=== PATIENT | female | born 2000 | race Caucasian/White ===

== ENCOUNTER 2019-11-29 14:43 | Emergency (ER) | payer OTHER ==
--- NOTE | 2019-11-29 14:51 | UC ---
General HPI - HPI Summary HPI Summary: 19 yo female co hives starting approx 11am today. Took benadryl x 2 otc apprx 13:30 Not sure of inciting exposure Not sob No fever /chills. No GI upset No issues, currently on menstrual period + known hx shellfish allergy, but has not had seafood of any kind recently Has not taken any medication in the last two days (most recent was ibuprofen a couple days ago) - History of Current Complaint Stated Complaint: HIVES Time Seen by Provider: 11/29/19 14:49 Hx Obtained From: Patient - Allergy/Home Medications Allergies/Adverse Reactions: Allergies Allergy/AdvReac Type Severity Reaction Status Date / Time Cephalosporins Allergy Hives Verified 11/29/19 14:57 Penicillins Allergy Hives Verified 11/29/19 14:57 Home Medications: Home Medications Famotidine TAB* [Pepcid 20 MG TAB*] 20 mg PO DAILY #20 tab 11/29/19 [Rx] Fluticasone NASAL SPRAY 50MCG* [Flonase NASAL SPRAY 50MCG*] 2 spray BOTH NARES DAILY #1 btl 11/29/19 [Rx] diphenhydrAMINE HCl [Benadryl Allergy] 25 mg PO Q6HR 11/29/19 [History Confirmed 11/29/19] predniSONE 10 mg TAB [Deltasone 10 MG TAB*] 10 mg PO DAILY #20 tab 11/29/19 [Rx] PMH/Surg Hx/FS Hx/Imm Hx Previously Healthy: Yes - Family History Known Family History: Positive: None Review of Systems All Other Systems Reviewed And Are Negative: Yes Constitutional: Positive: Negative Skin: Positive: Rash Eyes: Positive: Negative ENT: Positive: Sinus Congestion, Other - ear congestion Respiratory: Positive: Negative Cardiovascular: Positive: Negative Gastrointestinal: Positive: Negative Genitourinary: Positive: Negative Motor: Positive: Negative Neurovascular: Positive: Negative Musculoskeletal: Positive: Negative Neurological/Mental Status: Positive: Negative Psychological: Positive: Negative Is Patient Immunocompromised?: No Physical Exam Triage Information Reviewed: Yes Appearance: Well-Appearing - sitting up itchy but nad, Well-Nourished Vital Signs Reviewed: Yes Eye Exam: Normal - watery ENT: Positive: TM dull - Both TM's dull, rtx'd, Other - mild post pharynx redness, uvula midline slightly edematous, no airway obst no stridor Neck exam: Normal Neck: Positive: Supple, Nontender, No Lymphadenopathy Respiratory Exam: Normal Respiratory: Positive: Chest non-tender, Lungs clear, Normal breath sounds, No respiratory distress, No accessory muscle use Cardiovascular Exam: Normal Cardiovascular: Positive: RRR, No Murmur, Pulses Normal, Brisk Capillary Refill Abdominal Exam: Normal Abdomen Description: Positive: Nontender Musculoskeletal Exam: Normal Musculoskeletal: Positive: Strength Intact Neurological Exam: Normal - nonfocal Psychological Exam: Normal - nad Skin Exam: Other - nondiaphoretic + urticaria torso, arms, neck. R ear tragus red and swollen Course/Dx - Course Course Of Treatment: 16:00 - still itchy but less so. Ear better. No new symptoms. RST negative see avs reviewed coa / tx plan questions as posed answered to the best of my ability - Diagnoses Provider Diagnosis: Urticaria Discharge ED - Sign-Out/Discharge Documenting (check all that apply): Patient Departure All imaging exams completed and their final reports reviewed: No Studies - Discharge Plan Condition: Stable Disposition: HOME Prescriptions: Famotidine TAB* [Pepcid 20 MG TAB*] 20 mg PO DAILY #20 tab Fluticasone NASAL SPRAY 50MCG* [Flonase NASAL SPRAY 50MCG*] 2 spray BOTH NARES DAILY #1 btl predniSONE 10 mg TAB [Deltasone 10 MG TAB*] 10 mg PO DAILY #20 tab Patient Education Materials: Diphenhydramine (By mouth), Urticaria (ED) Forms: *Work Release Referrals: [facility],[place] [Primary Care Provider] - Additional Instructions: Avoid scented soap, perfumes, scented deodorants until you are feeling back to normal. Hydrate. Avoid hot showers until you are feeling better. Use unscented white soap, and hypoallergenic laundry soap, and double rinse clothes. Rapid strep test negative. Please seek medical attention for worse or new problems. Consider HEPA Filter for your room. - Billing Disposition and Condition Condition: STABLE Disposition: Home
[2019-11-29 14:57] VITALS: BP 101/68
[2019-11-29] MEDS ORDERED: methylPREDNISolone 125 MG* 2 ML VIAL IM ONE (15:11)
[2019-11-29] MEDS ORDERED: Famotidine TAB* 20 MG PO ONE (15:11)
== END 2019-11-29 16:26 | disposition home or self-care (01) ==
LOC: UCEAST 14:43
DX: L50.9 Urticaria, unspecified (principal); J34.89 Other specified disorders of nose and nasal sinuses; Z88.0 Allergy status to penicillin; Z88.1 Allergy status to other antibiotic agents
CPT/HCPCS: 87651; 96372; 99202; A9270-GY; G0463; J2930

== ENCOUNTER 2019-12-08 10:33 | Emergency (ER) | payer OTHER ==
[2019-12-08 11:36] VITALS: BP 107/67
--- NOTE | 2019-12-08 11:51 | UC ---
Throat Pain/Nasal Alex HPI - HPI Summary HPI Summary: 19 year old female, h/o tubes in ears as child, presents with b/l ear pain, more severe in R ear that started ~ 1 week ago. + flushed, no fever, chills. last 2 days- chest congestion, dry cough. no fever. REcent travel to [place], returned 11/22. Health department notified. - History of Current Complaint Chief Complaint: UCGeneralIllness Stated Complaint: COUGH & CONGESTION Time Seen by Provider: 12/08/19 11:49 Hx Obtained From: Patient Hx Last Menstrual Period: 11/24/19 ?: No Onset/Duration: Sudden Onset Severity: Mild Pain Intensity: 1 Pain Scale Used: 0-10 Numeric Cough: Other: - mild Associated Signs & Symptoms: Negative: Fever, Rash - Allergies/Home Medications Allergies/Adverse Reactions: Allergies Allergy/AdvReac Type Severity Reaction Status Date / Time Cephalosporins Allergy Hives Verified 12/08/19 11:30 Penicillins Allergy Hives Verified 12/08/19 11:30 Home Medications: Home Medications predniSONE 10 mg TAB [Deltasone 10 MG TAB*] 10 mg PO ONCE 12/08/19 [History Confirmed 12/08/19] PMH/Surg Hx/FS Hx/Imm Hx Previously Healthy: Yes - Surgical History Surgical History: Yes Surgery Procedure, Year, and Place: tubes in ears - Family History Known Family History: Positive: None - Social History Occupation: Student Alcohol Use: Occasionally Substance Use Type: None Smoking Status (MU): Never Smoked Tobacco Review of Systems All Other Systems Reviewed And Are Negative: Yes Constitutional: Positive: Chills. Negative: Fever, Fatigue ENT: Positive: Ear Ache, Nasal Discharge, Sinus Congestion, Sinus Pain/ Tenderness Respiratory: Positive: Cough. Negative: Shortness Of Breath Cardiovascular: Positive: Negative Genitourinary: Positive: Negative Musculoskeletal: Positive: Negative Neurological/Mental Status: Positive: Headache Psychological: Positive: Negative Is Patient Immunocompromised?: No Physical Exam Triage Information Reviewed: Yes Appearance: No Pain Distress, Well-Nourished, Ill-Appearing - minimal Vital Signs: Initial Vital Signs Temp 98.7 F 12/08/19 11:31 Pulse 95 12/08/19 11:31 Resp 16 12/08/19 11:31 BP 107/67 12/08/19 11:31 Pulse Ox 99 12/08/19 11:31 Vital Signs Reviewed: Yes Eyes: Positive: Conjunctiva Clear ENT: Positive: Hearing grossly normal, TMs normal, Uvula midline. Negative: Tonsillar swelling, Tonsillar exudate, Sinus tenderness Neck: Positive: Supple, Nontender, No Lymphadenopathy. Negative: Nuchal Rigidity, Enlarged Nodes @ Respiratory: Positive: Chest non-tender, Lungs clear, Normal breath sounds, No respiratory distress, No accessory muscle use. Negative: Respiratory distress, Crackles, Rhonchi, Stridor, Wheezing Cardiovascular: Positive: RRR, No Murmur Musculoskeletal Exam: Normal Musculoskeletal: Positive: Strength Intact Neurological Exam: Normal Psychological Exam: Normal Skin Exam: Normal Throat Pain/Nasal Course/Dx - Course Course Of Treatment: You tested positive for Influenza A - Over the counter medications to help with symptoms - Increase fluid intake to prevent dehydration - Work/ school noted given - Follow up with [facility] if no improvement of symptoms within 2-3 days - Avoid contact with sick people/ elderly. - Go to ER with increased pain, neck pain, fever > 102 after medication - Differential Dx/Diagnosis Differential Diagnosis/HQI/PQRI: Pharyngitis, URI Provider Diagnosis: Influenza A Discharge ED - Sign-Out/Discharge Documenting (check all that apply): Patient Departure All imaging exams completed and their final reports reviewed: No Studies - Discharge Plan Condition: Good Disposition: HOME Patient Education Materials: Influenza (ED) Forms: *School Release, *Work Release Referrals: No Primary Care Phys,[facility] [Primary Care Provider] - Additional Instructions: You tested positive for Influenza A - Over the counter medications to help with symptoms - Increase fluid intake to prevent dehydration - Work/ school noted given - Follow up with [facility] if no improvement of symptoms within 2-3 days - Avoid contact with sick people/ elderly. - Go to ER with increased pain, neck pain, fever > 102 after medication - Billing Disposition and Condition Condition: GOOD Disposition: Home - Attestation Statements Provider Attestation: I was available for consult. This patient was seen by the [facility]. The patient was not presented to , seen by or examined by -Kenisha Aviles MD
[2019-12-08 12:22] LABS: Influenza A Molecular POSITIVE (Negative)
== END 2019-12-08 12:51 | disposition home or self-care (01) ==
LOC: UCEAST 10:33
DX: J10.1 Influenza due to other identified influenza virus with other respiratory manifestations (principal); H92.03 Otalgia, bilateral; Z88.1 Allergy status to other antibiotic agents; Z88.0 Allergy status to penicillin
CPT/HCPCS: 99211; G0463